=== PATIENT | female | born 1975 | race Caucasian/White ===

== ENCOUNTER 2021-08-18 11:31 | Emergency (ER) | payer OTHER ==
[2021-08-18 13:16] LABS: EOSINOPHIL 1.6 % (0-5); HCT 40.5 % (37.0-47.0); HGB 13.7 g/dl (12.5-16.0); LYMPHOCYTE 13.8 % (15-48); MCH 30.6 pg (25.0-31.0); MCHC 33.8 g/dL (32.0-36.0); MCV 90.6 fL (78.0-100.0); MONOCYTE 11.8 % (0-12); MPV 10.4 fL (6.0-9.5); NEUTROPHIL 71.5 % (41-80); NRBC 0; PLT 189 K/uL (150-400); RBC 4.47 M/uL (4.20-5.40); RDW 13.3 % (11.5-14.0); WBC 6.3 K/uL (4.0-10.5)
[2021-08-18 13:18] LABS: BILIRUBIN NEGATIVE (NEGATIVE); BLOOD NEGATIVE Ery/uL (NEGATIVE); CLARITY CLEAR (CLEAR); COLOR YELLOW (YELLOW); GLUCOSE (U) NORMAL (NORMAL); LEUKOCYTES 1+ Leu/uL (NEGATIVE); NITRITE NEGATIVE (NEGATIVE); PROTEIN NEGATIVE (NEGATIVE); SPECIFIC GRAVITY <=1.005 (1.001-1.030); UROBILINOGEN 0.2 mg/dL (0.2-1.0); pH 6.5 (5.0-9.0)
[2021-08-18 13:28] LABS: BACTERIA 3+
[2021-08-18 13:29] LABS: CREATININE 0.69 mg/dL (0.51-0.95); POTASSIUM 4.2 mmol/L (3.5-5.1)
[2021-08-18 14:12] LABS: CORONAVIRUS 2019 SARS-COV-2 NEGATIVE (NEGATIVE); INFLUENZA A NAA NEGATIVE (NEGATIVE)
[2021-08-18] MEDS ORDERED: MACROBID100 MG PO (15:03)
[2021-08-18] MEDS ORDERED: CYCLOBENZAPRINE10 MG PO (15:03)
[2021-08-21 20:09] LABS: CHLAMYDIA TRACHOMATIS, NAA Negative (Negative); NEISSERIA GONORRHOEAE, NAA Negative (Negative)
== END 2021-08-18 16:15 | disposition home or self-care (01) ==
LOC: FER 11:31
PROVIDERS: Nurse Practitioner Family
DX: N39.0 Urinary tract infection, site not specified (principal); E11.9 Type 2 diabetes mellitus without complications; Z20.822 Contact with and (suspected) exposure to COVID-19; Z79.84 Long term (current) use of oral hypoglycemic drugs; Z88.2 Allergy status to sulfonamides; Z88.8 Allergy status to other drugs, medicaments and biological substances
CPT/HCPCS: 36415; 80048; 81001; 85025; 87491; 87591; J0696; U0002